=== PATIENT | male | born 1960 | race Caucasian/White ===

== ENCOUNTER 2018-05-19 17:58 | Emergency (ER) | payer OTHER, MEDICAID, SELFPAY ==
[2018-05-19 18:00] VITALS: BP 124/82; PULSE 82; RESP 14; TEMP 36.3; O2SAT 99
--- NOTE | 2018-05-19 18:27 | ED_ITS ---
HPI - Neuro Symptoms/Deficit General Chief Complaint: Neuro Symptoms/Deficit Stated Complaint: THINKS HE IS HAVING A STROKE Time Seen by Provider: 05/19/18 18:27 Source: patient and family Mode of arrival: ambulatory Limitations: no limitations History of Present Illness HPI Narrative: Patient is a 58-year-old male here for evaluation of left-sided headache and weakness in his left leg. 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 He has since had this aneurysm clipped. He states that he does have residual left-sided weakness and tingling specially in his left lower extremity. He states that the symptoms have been improving. He states that today he woke up this morning of that is normal state health. He states he laid down to take a nap at approximately 10 o 'clock and woke up at approximately noon with a left-sided headache. He also states that he has some tingling and weakness in his left leg which he thinks is little worse than normal for him. No upper extremity symptoms. No vision changes. He states that he normally does not get headaches. He states that the headache on the left side of his head feels very similar to what the headache felt like when he was diagnosed the aneurysm on the right side. Has not tried anything for prior to arrival here in the emergency. On Anticoagulants: Yes (81mg ASA) Related Data Home Medications Medication Instructions Recorded Confirmed acetaminophen-codeine 1 - 2 tab PO Q4HP PRN #0 06/23/17 cyclobenzaprine 10 mg PO Q8H #0 06/23/17 cyclobenzaprine mg PO Q8HP PRN #45 06/23/17 escitalopram oxalate 20 mg PO QDAY #0 06/23/17 gabapentin 100 mg PO QID #0 06/23/17 olanzapine 20 mg PO HS #0 06/23/17 oxcarbazepine [Oxtellar XR] 2 cap PO HS #0 06/23/17 oxcarbazepine [Oxtellar XR] 600 mg PO HS #42 06/23/17 topiramate 50 mg PO BID #0 06/23/17 tramadol 50 - 100 mg PO QIDP PRN #0 06/23/17 venlafaxine 150 mg PO QDAY #0 06/23/17 venlafaxine [Effexor XR] 150 mg PO Q DAY #19 06/23/17 aspirin 81 mg PO QDAY #0 08/28/17 atorvastatin [Lipitor] 40 mg PO QDAY #0 08/28/17 nicotine 21 mg TOPICAL QDAY #0 08/28/17 valproic acid 250 mg PO #0 08/28/17 benztropine 1 mg PO BID #0 10/06/17 divalproex 500 mg PO TID #0 10/06/17 divalproex [Depakote] 250 mg PO BID #0 10/06/17 haloperidol 2 mg PO BID #0 10/06/17 levetiracetam [Keppra] 1,500 mg PO BID #0 10/06/17 quetiapine [Seroquel] 250 mg PO HS #0 10/06/17 Previous Rx's Medication Instructions Recorded cyclobenzaprine 10 mg PO Q8HP PRN #20 tab 06/23/17 escitalopram oxalate [Lexapro] 20 mg PO QDAY #15 tab 06/23/17 gabapentin 100 mg PO QID #270 cap 06/23/17 oxcarbazepine [Oxtellar XR] 600 mg PO HS #42 06/23/17 topiramate [Topamax] 50 mg PO BID #32 06/23/17 tramadol 0 tab PO Q6HP PRN #20 tab 06/23/17 venlafaxine [Effexor XR] 150 mg PO QDAY #19 cap 06/23/17 Allergies Allergy/AdvReac Type Severity Reaction Status Date / Time cephalexin [From KEFLEX] Allergy Unknown Verified 05/19/18 18:03 erythromycin base Allergy Unknown Verified 05/19/18 18:03 [ERYTHROMYCIN BASE] ketorolac [From TORADOL] Allergy Unknown Verified 05/19/18 18:03 Review of Systems Constitutional Denies fever(s), Reports headache(s) and Reports weakness (Left lower extremity) Eyes Denies change in vision, Denies diplopia, Denies floaters and Denies loss of vision ENT Ears, Nose, Mouth, and Throat: Denies vertigo, Denies dizziness, Reports headache(s) and Denies disequilibrium Cardiovascular Denies chest pain and Denies dyspnea Respiratory Denies dyspnea Gastrointestinal Gastrointestinal: Denies abdominal pain, Denies nausea and Denies vomiting Musculoskeletal Denies myalgias, Denies arthralgias, Denies numbness and Reports tingling (Left lower extremity) Integumentary/Breasts Denies lesions and Denies rash Neurologic Denies vertigo, Denies dizziness, Reports headache(s), Denies loss of vision, Denies numbness, Reports tingling (Left lower extremity), Denies disequilibrium and Reports weakness (Left lower extremity) Hematologic/Lymphatic Denies easy bleeding and Denies easy bruising [facility] Medical History Cerebral aneurysm (Acute) Hemorrhagic stroke (Acute) Seizure (Acute) Surgical History H/O cerebral aneurysm repair (Acute) History of permanent cardiac pacemaker placement (Acute) Social History Smoking Status: Current every day smoker Exam Initial Vital Signs Initial Vital Signs: Vital Signs Temperature 97.4 F L 05/19/18 18:00 Pulse Rate 82 05/19/18 18:00 Respiratory Rate 14 05/19/18 18:00 Blood Pressure 124/82 05/19/18 18:00 Pulse Oximetry 99 05/19/18 18:00 Const General: cooperative, comfortable, well developed, well groomed and No acute distress Orientation: alert, awake, oriented x3, oriented to person, oriented to place, oriented to time and not confused Limitations: mental status not altered [facility] Head: atraumatic Face and sinus: normal facial exam and face symmetric Eyes Pupils: PERRL EOM: EOM intact bilaterally and No nystagmus Resp Effort & Inspection: normal respiratory effort Auscultation: clear to auscultation bilaterally Cardio Rate: regular rate Rhythm: regular rhythm Heart Sounds: no murmurs GI Inspection: normal to inspection, abdominal wall ecchymosis and non-distended Palpation: soft and No firm Back/Spine/Pelvis Back: No CVA tenderness Skin Rashes: no rashes Wounds: no wounds Neuro General: alert, awake, oriented x3, not confused and not obtunded Cranial Nerves: CN's II-XI intact bilaterally, PERRL, EOM intact bilaterally, facial strength normal, tongue midline, able to rotate head bilaterally, able to elevate shoulders bilaterally and No nystagmus Cognition: normal cognition Speech: speech normal Motor: strength 5/5 throughout, no pronator drift and no movement abnormalities noted Sensory Exam: lower extremity (Decreased sensation to light touch left lower extremity compared to right) Coordination: [id number] test normal and dgty-[id number] test normal (Some difficulty with heel to farooq with the left lower extremity) Scores GCS [place] coma scale eye opening: Spontaneous [place] coma scale verbal response: Orientated [place] coma scale motor response: Obey commands [place] coma scale total score: 15 NIH Stroke Scale Level of Conciousness: Alert, keenly responsive Ask month/age: Answers both questions correctly. Open/close eyes, close hand: Performs both tasks correctly Best gaze horizontal: Normal Visual campos: No visual loss Facial palsy: Normal symetrical movement Left arm drift: No drift for full 10 sec Right arm drift: No drift for full 10 sec Left leg drift: Drifts down, not to bed Right leg drift: No drift for full 10 sec Limb ataxia: Present in one limb Sensory on face/arms/legs: Mild to moderate sensory loss, can tell touch Best language: No aphasia, normal Dysarthria: Normal Extinction or inattention: No abnormality Total NIH Stroke scale score: 3 Course Orders Ordered: Discontinued Medications Diphenhydramine HCl (Benadryl) 25 mg IV NOW ONE Stop: 05/19/18 20:50 Last Admin: 05/19/18 21:02 Dose: 25 mg Sodium Chloride (Normal Saline 0.9%) 1,000 mls @ 1,000 mls/hr IV BOLUS ONE Stop: 05/19/18 19:26 Last Infusion: 05/19/18 19:45 Dose: 0 mls/hr Admin: 05/19/18 18:52 Dose: 1,000 mls/hr Metoclopramide HCl (Reglan) 10 mg IV NOW ONE Stop: 05/19/18 20:50 Last Admin: 05/19/18 21:02 Dose: 10 mg Morphine Sulfate (Morphine Sulfate) 4 mg IV NOW ONE Stop: 05/19/18 21:53 Last Admin: 05/19/18 21:59 Dose: 4 mg Vital Signs - 8 hr 05/19/18 21:00 05/19/18 22:22 Pulse Rate 51 L 51 L Respiratory Rate 14 20 Blood Pressure [Right Arm] 125/70 117/82 Pulse Oximetry 100 100 MDM - Neuro Symptoms/Deficit Medical Records Attestation: I reviewed the patient's medical records. Lab Data Attestation: I reviewed the patient's lab results. Result diagrams: 05/19/18 18:36 05/19/18 18:36 Lab Results 05/19/18 05/19/18 05/19/18 Range/Units 18:36 18:36 18:36 WBC 5.2 (4.5-11.0) X10^3/uL RBC 4.31 L (4.5-5.9) X10^6/uL Hgb 14.6 (13.5-17.5) g/dL Hct 42.5 (41-53) % MCV 98.7 (80-100) fL MCH 33.9 (26-34) PG MCHC 34.3 (30-36) % RDW 12.9 (11.6-14.8) % Plt Count 169 (150-400) X10^3/uL Neut % (Auto) 49.8 L (50-75) % Lymph % (Auto) 39.9 (25-40) % Mcdonough % (Auto) 9.1 (3-14) % Eos % (Auto) 0.5 L (2-4) % Baso % (Auto) 0.7 (0-2) % Neut # (Auto) 2600 L (7529-2997) /uL PT 11.2 (10.1-12.7) SECONDS INR 1.0 (0.9-1.3) APTT 31 (26.4-36.2) SECONDS Sodium 143 (137-145) mmol/L Potassium 4.2 (3.4-5.1) mmol/L Chloride 105 (98-107) mmol/L Carbon Dioxide 27 (22-32) mmol/L BUN 12 (9-20) mg/dL Creatinine 1.00 (0.66-1.25) mg/dL Estimated GFR > 60.0 (>60) mL/min BUN/Creatinine Ratio 12.0 (6-22) Glucose 99 (70-100) mg/dL Calcium 9.2 (8.4-10.2) mg/dL Total Bilirubin 0.4 (0.2-1.3) mg/dL AST 22 (17-59) IU/L ALT 29 (21-72) IU/L Alkaline Phosphatase 42 (38-126) U/L Total Protein 6.9 (6.3-8.2) g/dL Albumin 4.2 (3.5-5.0) g/dL Globulin 2.7 (1.7-4.1) g/dL Albumin/Globulin Ratio 1.6 (1.0-2.8) Imaging Data CT scan - head: Radiologist's impression: [address] [address] [address] Scan Report Signed Patient: Jeyson Flynn BMR#: [id number] : 2Acct:[id number] Age/Sex: 58 / MDate of Service: 05/19/18 Loc: ED Accession Number: [id number] Procedure: CT head/brain wo con Ordering Provider: Jayjay Maldonado D.O. PROCEDURE: CT HEAD/BRAIN WO CON INDICATIONS: History of hemorrhagic CVA with aneurysm with headache TECHNIQUE: Noncontrast 4.5 mm thick angled axial sections acquired from the foramen magnum to the vertex, with coronal and sagittal reformats. For radiation dose reduction, the following was used: automated exposure control, adjustment of mA and/or kV according to patient size. COMPARISON: None. FINDINGS: Image quality: Excellent. CSF spaces: Basal cisterns are patent. No extra-axial fluid collections. The ventricles are symmetric in size and shape. Brain: No intracranial bleeds or masses. There is cerebral volume loss for age , with resultant ventricular and sulcal prominence. There are periventricular and deep white matter chronic small vessel ischemic changes. Chronic right temporal, right frontal and right parietal infarcts are noted. Old, bilateral cerebellar hemisphere lacunar infarcts are noted. Postsurgical changes compatible with cerebral aneurysm clipping and possibly endovascular coiling noted. There is intracranial internal carotid artery atherosclerosis. Skull and face: Postsurgical changes compatible with right frontal-temporal craniotomy for aneurysm clipping noted. Bifrontal calvarial niharika holes are noted. The visualized facial bones appear intact, without suspicious lesions. Sinuses: Visualized sinuses and mastoids are clear. IMPRESSION: 1. No acute intracranial disease process. 2. Postsurgical changes compatible with prior cerebral aneurysm clipping and and possibly endovascular coiling. 3. Old right temporal, right frontal and right parietal infarcts. Old bilateral cerebellar hemisphere lacunar infarcts. Dictated by: Kelsey Peter MD, PhD on 05/19/2018 at 21:22 Approved by: Kelsey Peter MD, PhD on 05/19/2018 at 21:26 CTA Head and neck: Radiologist's impression: [address] [address] [address] Scan Report Signed Patient: Jeyson Flynn BMR#: [id number] : 2Acct:[id number] Age/Sex: 58 / MDate of Service: 05/19/18 Loc: ED Accession Number: [id number] Procedure: CT angio head and neck Ordering Provider: Jayjay Maldonado D.O. PROCEDURE: CT ANGIO HEAD AND NECK INDICATIONS: History CVA and aneurysm with headache TECHNIQUE: Pre-contrast 4.5 mm thick sections acquired from the foramen magnum to the vertex. After the administration of intravenous contrast, 1 mm thick sections acquired from the aortic arch through the [place]. Post-contrast 4.5 mm thick sections then re- acquired from the foramen magnum to the vertex. 3-dimensional maximum-intensity- projection (MIP) and/or volume rendering reformats were acquired of the central intracranial vasculature and neck separately. COMPARISON: None. FINDINGS: Image quality: Excellent. BRAIN: CSF spaces: Ventricles are normal in size and shape. Basal cisterns are patent. No extra-axial fluid collections. 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 No midline shift. No intracranial bleeds or masses. Old right frontal, right parietal, right temporal infarcts are noted. Old bilateral cerebellar hemisphere lacunar infarcts are noted. Skull and face: Postsurgical changes compatible with right frontal-temporal craniotomy for aneurysm clipping noted. The facial bones appear intact, without suspicious lesions. Orbits appear normal. Sinuses: Sinuses and mastoids are clear. HEAD CT ANGIOGRAPHY: Anterior circulation: Intracranial internal carotid arteries are normal in size and flow. The flow within the paired anterior cerebral arteries is normal and symmetric. The flow within the middle cerebral arteries is normal and symmetric. The anterior communicating artery is seen. No aneurysms are seen. Posterior circulation: Visualized portions of the vertebral arteries demonstrate normal caliber, and join to form a normal appearing basilar artery. Flow within the posterior cerebral arteries is normal and symmetric. No aneurysms are seen. Dural sinuses demonstrate normal postcontrast enhancement. NECK CT ANGIOGRAPHY: Carotid system: The great vessels demonstrate a conventional anatomy as they arise from the aortic arch. The origins of the common carotid arteries appear patent. The common carotid arteries demonstrate normal caliber and courses. Atherosclerotic calcifications noted in the origins of the internal carotid arteries bilaterally which do not cause measurable stenosis. Posterior circulation: The origins of the vertebral arteries both appear widely patent. The more superior extracranial portions of both vertebral arteries also demonstrate normal courses and calibers. They join to form a normal appearing basilar artery. Soft tissues: Visualized neck soft tissues demonstrate no suspicious abnormalities. Bones: No suspicious bony lesions. Visualized cervical spine appears normally aligned. IMPRESSION: 1. No acute intracranial disease process. 2. Status post clipping/endovascular coiling of cerebral aneurysm. 3. No large vessel occlusion, hemodynamically significant vascular stenosis or vascular dissection. 4. Less than 50% stenosis of the origins of the internal carotid arteries bilaterally. Any quantitative measurements of stenosis were performed using NASCET criteria. Dictated by: Kelsey Peter MD, PhD on 05/19/2018 at 21:35 Approved by: Kelsey Peter MD, PhD on 05/19/2018 at 21:41 [facility] Narrative Medical decision making narrative: Noncontrast head CT unremarkable. CT angiogram of the head neck shows the right-sided aneurysmal clipping however no signs of new bleed or aneurysm. Patient with an NIH scale of 3. Last known normal was at 10 o'clock patient evaluated greater than 6 hr after the onset of the symptoms. Difficult for me and also the patient to distinguish whether not this symptoms in his left lower extremity are baseline for him more little bit worse. He does seem to think that the weakness and the tingling is a little worse than his baseline. Patient does not have a history of headaches. He states this headache feels what he felt like when he had the aneurysm on the right. He was given Reglan and Benadryl which brought his headache down from a 9/10 to a 7/10. I then gave him morphine which brought his headache down to a 3 /10. I discussed the case with the patient's neurologist. Patient is unable to obtain an MRI secondary to the his aneurysmal clips and also his pacemaker. Patient's neurologist seem to think that if the patient's headache was improving that given the normal head CT and a CTA that a lumbar puncture would not necessarily be warranted. I did discuss this with the patient. We did discuss the indications for lumbar puncture however given the fact that his headache has greatly improved he was asking to go home. Some of the trembling in his left lower extremity had improved after his headache pain and improved. I did inform the patient that he was at risk for intracranial hemorrhage. Patient expressed understanding of this. He was given return precautions. He was instructed he needed to contact his primary care doctor tomorrow for a follow-up. Both the patient and his son who are bedside expressed understanding and agreement with plan. Discharge Plan Departure Patient Disposition: Home Clinical Impression: Headache Discharge Date/Time: 05/19/18 22:31 Interventions: ED Discharge Assessment Last Done: 05/19/18 22:30 Instructions: DI for Headache Activity Restrictions/Additional Instructions: Call your neurologist tomorrow for a follow-up. Return to the emergency department for any new symptoms, worsening symptoms worsening of the headache, or any other concerning symptoms. Prescriptions: No Action olanzapine 20 MG tablet 20 mg PO HS Qty: 0 RF: 0 cyclobenzaprine 10 MG tablet 10 mg PO Q8H Qty: 0 RF: 0 oxcarbazepine [Oxtellar XR] 600 MG tablet extended release 24 hr 2 cap PO HS Qty: 0 RF: 0 gabapentin 100 MG capsule 100 mg PO QID Qty: 0 RF: 0 escitalopram oxalate 20 MG tablet 20 mg PO QDAY Qty: 0 RF: 0 topiramate 50 MG tablet 50 mg PO BID Qty: 0 RF: 0 tramadol 50 MG tablet 50 - 100 mg PO QIDP PRNQty: 0 RF: 0 acetaminophen-codeine 60 MG/300 MG tablet 1 - 2 tab PO Q4HP PRNQty: 0 RF: 0 venlafaxine 150 MG capsule,extended release 24hr 150 mg PO QDAY Qty: 0 RF: 0 venlafaxine [Effexor XR] 150 MG capsule,extended release 24hr 150 mg PO Q DAY Qty: 19 RF: 0 cyclobenzaprine 10 MG tablet PO Q8HP PRNQty: 45 RF: 0 oxcarbazepine [Oxtellar XR] 600 MG tablet extended release 24 hr 600 mg PO HS Qty: 42 RF: 0 cyclobenzaprine 10 MG tablet 10 mg PO Q8HP PRNQty: 20 RF: 0 venlafaxine [Effexor XR] 150 MG capsule,extended release 24hr 150 mg PO QDAY Qty: 19 RF: 0 tramadol 50 MG tablet PO Q6HP PRNQty: 20 RF: 0 gabapentin 100 MG capsule 100 mg PO QID Qty: 270 RF: 0 escitalopram oxalate [Lexapro] 20 MG tablet 20 mg PO QDAY Qty: 15 RF: 0 topiramate [Topamax] 50 MG tablet 50 mg PO BID Qty: 32 RF: 0 oxcarbazepine [Oxtellar XR] 600 MG tablet extended release 24 hr 600 mg PO HS Qty: 42 RF: 0 atorvastatin [Lipitor] 40 MG tablet 40 mg PO QDAY Qty: 0 RF: 0 aspirin 81 MG tablet,chewable 81 mg PO QDAY Qty: 0 RF: 0 nicotine 14 MG patch 24 hour 21 mg Topical QDAY Qty: 0 RF: 0 valproic acid 250 MG capsule 250 mg PO Qty: 0 RF: 0 divalproex 500 MG tablet,delayed release (DR/EC) 500 mg PO TID Qty: 0 RF: 0 benztropine 1 MG tablet 1 mg PO BID Qty: 0 RF: 0 quetiapine [Seroquel] 300 MG tablet 250 mg PO HS Qty: 0 RF: 0 divalproex [Depakote] 250 MG tablet,delayed release (DR/EC) 250 mg PO BID Qty: 0 RF: 0 haloperidol 2 MG tablet 2 mg PO BID Qty: 0 RF: 0 levetiracetam [Keppra] 1,000 MG tablet 1,500 mg PO BID Qty: 0 RF: 0
[2018-05-19 18:46] LABS: Add Manual Diff / Slide Review NO; Basophils Percent Auto 0.7 % (0-2); Eosinophils Percent Auto 0.5 % (2-4); Hematocrit 42.5 % (41-53); Hemoglobin 14.6 g/dL (13.5-17.5); Lymphocytes Percent Auto 39.9 % (25-40); Mean Corpuscular HGB Conc 34.3 % (30-36); Mean Corpuscular Hemoglobin 33.9 PG (26-34); Mean Corpuscular Volume 98.7 fL (80-100); Monocytes Percent Auto 9.1 % (3-14); Neutrophils Absolute Auto 2600 /uL (3000-5900); Neutrophils Percent Auto 49.8 % (50-75); Platelet Count 169 X10^3/uL (150-400); Red Blood Cell Count 4.31 X10^6/uL (4.5-5.9); Red Cell Distribution Width 12.9 % (11.6-14.8); White Blood Cell Count 5.2 X10^3/uL (4.5-11.0)
[2018-05-19] MEDS: SODIUM CHLORIDE 0.9% 1,000 ML 1000 ML IV (18:52)
[2018-05-19 18:53] LABS: Prothrombin Time 11.2 SECONDS (10.1-12.7)
[2018-05-19 18:56] LABS: PTT Partial Thromboplastin Tim 31 SECONDS (26.4-36.2)
[2018-05-19 18:58] LABS: Alanine Aminotransferase 29 IU/L (21-72); Albumin 4.2 g/dL (3.5-5.0); Albumin Globulin Ratio 1.6 (1.0-2.8); Alkaline Phosphatase 42 U/L (38-126); Aspartate Aminotransferase 22 IU/L (17-59); Bilirubin Total 0.4 mg/dL (0.2-1.3); Blood Urea Nitrogen 12 mg/dL (9-20); Calcium 9.2 mg/dL (8.4-10.2); Carbon Dioxide 27 mmol/L (22-32); Chloride 105 mmol/L (98-107); Estimated Glomerular Filt Rate > 60.0 mL/min (>60); Globulin 2.7 g/dL (1.7-4.1); Glucose 99 mg/dL (70-100); HEMOLYSIS < 15 (0-50); Potassium 4.2 mmol/L (3.4-5.1); Sodium 143 mmol/L (137-145); Total Protein 6.9 g/dL (6.3-8.2)
--- NOTE | 2018-05-19 19:30 | PC.NURSE ---
pt c/o headache that travels from the back of his neck to the top of head. 03/26 pain, provider notified no new orders at this time.
[2018-05-19 19:45] VITALS: BP 128/75; PULSE 57; RESP 14; O2SAT 100
[2018-05-19 21:00] VITALS: BP 125/70; PULSE 51; RESP 14; O2SAT 100
[2018-05-19] MEDS: METOCLOPRAMIDE 10 MG/2 ML INJ IV (21:02)
[2018-05-19] MEDS: diphenhydrAMINE 50 MG/ML VIAL 25 MG IV (21:02)
[2018-05-19] MEDS: MORPHINE 5 MG/ML INJ 4 MG IV (21:59)
[2018-05-19 22:22] VITALS: BP 117/82; PULSE 51; RESP 20; O2SAT 100
== END 2018-05-19 22:31 | disposition home or self-care (01) ==
PROVIDERS: Emergency Provider Emergency Medicine; Family Provider Family Medicine; PCP Family Medicine
DX: R51 Headache (principal)
CPT/HCPCS: 36591; 70450; 70496; 70498; 80053; 85025; 85610; 85730; 96361; 96374; 96375; 99283; 99284; 99291; J1200; J2270; J2765; Q9967

== ENCOUNTER 2018-05-20 11:03 | Emergency (ER) | payer OTHER, MEDICAID, SELFPAY ==
[2018-05-20 11:10] VITALS: BP 91/65; PULSE 74; RESP 16; TEMP 36.2; O2SAT 100
--- NOTE | 2018-05-20 11:26 | DI.CT.S_ITS ---
PROCEDURE: CT VENOGRAM HEAD INDICATIONS: CONTRERAS, sent by Neurologist for VENOGRAM TECHNIQUE: Precontrast 4.5 mm thick angled axial sections acquired from the foramen magnum to the vertex. After the administration of intravenous contrast, 1 mm thick sections acquired from the skull base to the vertex after an appropriate venous phase delay. Postcontrast 4.5 mm thick sections then re-acquired from the foramen magnum to the vertex. Ciuiplg-fbyqefqun-pujotsgvwd (MIP) reformats were acquired of the venous structures. For radiation dose reduction, the following was used: automated exposure control, adjustment of mA and/or kV according to patient size. COMPARISON: [facility], CT, CT ANGIO HEAD AND NECK, 05/19/2018, 19:19. FINDINGS: Image quality: Excellent. Venous structures: Sagittal, straight, transverse, and sigmoid sinuses appear patent. 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 No definite superficial cortical venous thrombosis identified. CSF spaces: Ventricles are normal in size and shape. Basal cisterns are patent. No extra-axial fluid collections. Brain: No midline shift. No intracranial bleeds or masses. Chronic right frontal, right parietal and right temporal infarcts are stable. Chronic bilateral cerebellar hemisphere lacunar infarcts are stable. [place]-white matter interface appears intact. Skull and face: Postsurgical changes compatible with prior right frontal-temporal craniotomy for aneurysm clipping noted. facial bones appear intact, without suspicious lesions. Sinuses: Visualized sinuses and mastoids are clear. IMPRESSION: 1. No evidence of dural venous thrombosis. 2. No definite superficial cortical venous thrombosis. Dictated by: Kelsey Peter MD, PhD on 05/20/2018 at 12:31 Approved by: Kelsey Peter MD, PhD on 05/20/2018 at 12:36
--- NOTE | 2018-05-20 11:29 | ED.HA ---
HPI - Headache General Chief Complaint: Headache Stated Complaint: REAL BAD HEADACHE, SHAKING Time Seen by Provider: 05/20/18 11:18 Source: patient and family Mode of arrival: ambulatory Limitations: no limitations History of Present Illness HPI Narrative: 58-year-old male with complicated history returns to the emergency department with his son. He has a history of stroke and ruptured cerebral aneurysm and presents for re-evaluation of headache. He was seen and evaluated last night after progressively worsening headache over the course of the day and the possibility of left lower extremity weakness. 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 Patient had a noncontrasted head CT followed by CT angiogram of the head neck last night and a significant response to medications he was given. He was discharged home and follow up with his doctor, Dr. mcguire a neurologist at [facility], whom upon hearing the patient's headache returned sent him back to our department for a CT venogram of the head. Patient admits that he has a return of his headache but that his left lower extremity weakness has resolved. He denies any focal neurologic findings. He denies any recent injury. He denies any fever, chills or neck pain. He is acting at baseline per his son. MD Complaint: headache Onset (ago): hour(s) Onset description: gradual Location: occipital Severity: moderate Quality: aching and throbbing Exacerbating factors: none Context: occurred at rest Associated symptoms: none Related Data Home Medications Medication Instructions Recorded Confirmed topiramate 50 mg PO QAM #0 06/23/17 05/20/18 venlafaxine 150 mg PO QDAY #0 06/23/17 05/20/18 aspirin 81 mg PO QDAY #0 08/28/17 05/20/18 benztropine 1 mg PO BID #0 10/06/17 05/20/18 divalproex 500 mg PO BID #0 10/06/17 05/20/18 levetiracetam [Keppra] 1,500 mg PO BID #0 10/06/17 05/20/18 docusate sodium 100 mg PO BID PRN 05/20/18 05/20/18 quetiapine 50 mg PO BID 05/20/18 05/20/18 topiramate 100 mg PO QPM 05/20/18 05/20/18 Previous Rx's Medication Instructions Recorded tramadol [Ultram] 50 mg PO Q6H PRN #10 tab 05/20/18 Allergies Allergy/AdvReac Type Severity Reaction Status Date / Time cephalexin [From KEFLEX] Allergy Unknown Verified 05/19/18 18:03 erythromycin base Allergy Unknown Verified 05/19/18 18:03 [ERYTHROMYCIN BASE] ketorolac [From TORADOL] Allergy Unknown Verified 05/19/18 18:03 Review of Systems Review of Systems All systems reviewed & are unremarkable except as noted in HPI and below Constitutional Denies chills, Denies fever(s), Reports headache(s), Denies lethargy and Denies weakness Eyes Denies change in vision, Denies eye discharge, Denies irritation and Denies loss of vision ENT Ears, Nose, Mouth, and Throat: Denies change in voice, Reports headache(s), Denies neck pain and Denies sore throat Cardiovascular Denies chest pain, Denies irregular heart rhythm, Denies lightheadedness, Denies palpitations, Denies dyspnea, Denies dyspnea on exertion and Denies orthopnea Respiratory Denies cough, Denies dyspnea, Denies dyspnea on exertion and Denies wheezing Gastrointestinal Gastrointestinal: Denies abdominal pain, Denies change in bowel habits, Denies diarrhea, Denies nausea and Denies vomiting Genitourinary Denies hematuria, Denies flank pain, Denies urinary incontinence and Denies urinary urgency Musculoskeletal Denies neck pain Integumentary/Breasts Denies pruritus, Denies erythema, Denies rash and Denies wounds Neurologic Denies confusion, Reports headache(s), Denies loss of vision and Denies weakness Psychiatric Denies anxiety, Denies confusion, Denies depression, Denies homicidal ideation and Denies suicidal ideation Endocrine Denies palpitations Hematologic/Lymphatic Denies easy bruising Allergic/Immunologic Denies wheezing PFSH Medical History Cerebral aneurysm (Acute) Hemorrhagic stroke (Acute) Seizure (Acute) Surgical History H/O cerebral aneurysm repair (Acute) History of permanent cardiac pacemaker placement (Acute) Social History Smoking Status: Current every day smoker Exam Narrative Exam Narrative: GENERAL:58M chronically ill in mild distress, complaining of headache. Sitting in a well-lit room. Alert and oriented x3 HEAD: Atraumatic. Normocephalic. No temporal or scalp tenderness. EYES: Pupils equal round and reactive. Extraocular motions intact. No scleral icterus. No injection or drainage. ENT: Nose without bleeding, purulent drainage or septal hematoma. Throat without erythema, tonsillar hypertrophy or exudate. Uvula midline. Airway patent. NECK: Trachea midline. No JVD or lymphadenopathy. Supple, nontender, no meningeal signs. CARDIOVASCULAR: Regular rate and rhythm without murmurs, gallops, or rubs. RESPIRATORY: Clear to auscultation. Breath sounds equal bilaterally. No wheezes, rales, or rhonchi. GASTROINTESTINAL: Abdomen soft, non-tender, nondistended. No hepato-splenomegaly, or palpable masses. No guarding. EXTREMITIES: No clubbing, cyanosis, or edema. No joint tenderness, effusion, or edema noted. BACK: Nontender without deformity or crepitance. No flank tenderness. NEURO: AOx3. SKIN: No rash or erythema. NIH Stroke Scale 1a. LOC: Patient is alert and keenly responsive (0) 1b. LOC Questions: Patient answers both LOC questions accurately (0) 1c. LOC Commands: Patient performs both tasks correctly (0) 2. Best Gaze: Normal (0) 3. Visual: No visual loss (0) 4. Facial palsy: Normal symmetrical movements (0) 5. Motor arm: No drift (0) 6. Motor leg: No drift (0) 7. Limb ataxia: Absent (0) 8. Sensory: Normal (0) 9. Best language: No aphasia; normal (0) 10. Dysarthria: Normal (0) 11. Extinction and inattention: No abnormality (0) NIHSS: 0 Initial Vital Signs Initial Vital Signs: Vital Signs Temperature 97.1 F L 05/20/18 11:10 Pulse Rate 74 05/20/18 11:10 Respiratory Rate 16 05/20/18 11:10 Blood Pressure 91/65 05/20/18 11:10 Pulse Oximetry 100 05/20/18 11:10 Const General: cooperative and well developed Nutritional Appearance: well nourished Orientation: alert, awake, oriented x3 and not confused [facility] Head: normocephalic and atraumatic Ears: external ears normal and TM's normal bilaterally Nose: external nose normal and No nasal discharge Face and sinus: sinuses nontender, face symmetric, no sinus tenderness and No dry mucous membranes Mouth: oral mucosae normal and moist mucous membranes Teeth and gingiva: dentition normal Throat: tonsils normal and uvula midline Eyes General: appearance normal, both eyes and all related structures Eyelids: eyelids normal Conjunctivae: conjunctivae normal Sclera: sclerae normal Pupils: PERRL EOM: EOM intact bilaterally Neck Neck: normal visual inspection, trachea midline, No lymphadenopathy, No midline deformity and No JVD Lymphatic: No lymphedema Chest Chest: normal inspection of the chest Resp Effort & Inspection: normal respiratory effort, able to speak in complete sentences, no respiratory distress and no use of accessory muscles Auscultation: clear to auscultation bilaterally, no rales, no rhonchi and no wheezes Cardio Rate: regular rate Rhythm: regular rhythm Heart Sounds: no click, no gallops, no murmurs and no rubs Pulses: normal peripheral pulses GI Inspection: non-distended Palpation: soft, no hepatosplenomegaly, No guarding, No pulsatile mass and No tender Auscultation: normal bowel sounds Back/Spine/Pelvis Back: No CVA tenderness Cervical Spine: cervical ROM normal and No pain with cervical ROM Thoracic/Lumbar Spine: thoracic and lumbar spine normal to inspection Skin General: no rashes or lesions noted, No jaundice and No petechiae Neuro General: alert, oriented x3, gait normal and no focal motor deficits Speech: speech normal Extrem General: full ROM, no clubbing, cyanosis or edema, no pedal edema and no calf tenderness Psych Appearance: well kempt Mental Status: mental status grossly normal Attitude: cooperative Thought Content: normal and suicidality Judgment: judgment good Course Orders Ordered: ED Orders 05/20/18 11:52 Complete Blood Count AUTO DIFF Stat 05/20/18 12:15 Basic Metabolic Panel Stat Discontinued Medications Diphenhydramine HCl (Benadryl) 25 mg IV NOW ONE Stop: 05/20/18 12:55 Last Admin: 05/20/18 14:07 Dose: Not Given Metoclopramide HCl (Reglan) 10 mg IV NOW ONE Stop: 05/20/18 12:55 Last Admin: 05/20/18 14:07 Dose: Not Given Morphine Sulfate (Morphine) 4 mg IV NOW ONE Stop: 05/20/18 13:51 Last Admin: 05/20/18 14:05 Dose: 4 mg Reevaluation(s) Reevaluation #1: Patient has tremendous improvement in symptoms after above-stated medications. Consultations Consultation #1: I spoke with Dr. mcguire in lay all of the findings including today's CT venogram. We sure the opinion that the patient has had a very thorough evaluation between these 2 visits and all diagnoses of high clinical consequence have been considered. He recommends increasing Topamax morning dose from 50 to 100 and discharged with follow up as previously planned Vital Signs - 8 hr 05/20/18 12:56 05/20/18 14:07 05/20/18 15:03 Pulse Rate 84 61 Respiratory Rate 17 18 16 Blood Pressure [Left Arm] 115/81 106/67 124/92 H Pulse Oximetry 98 99 97 MDM - Headache Differential Diagnosis Differential diagnosis: Likely migraine, tension headache, subarachnoid hemorrhage, headache, meningitis, sinusitis and postconcussion syndrome Medical Records Attestation: I reviewed the patient's medical records. Lab Data Attestation: I reviewed the patient's lab results. Result diagrams: 05/20/18 11:52 05/20/18 12:15 Lab Results 05/20/18 05/20/18 Range/Units 11:52 12:15 WBC 5.8 (4.5-11.0) X10^3/uL RBC 4.43 L (4.5-5.9) X10^6/uL Hgb 15.1 (13.5-17.5) g/dL Hct 44.1 (41-53) % MCV 99.4 (80-100) fL MCH 34.1 H (26-34) PG MCHC 34.3 (30-36) % RDW 12.9 (11.6-14.8) % Plt Count 155 (150-400) X10^3/uL Neut % (Auto) 51.8 (50-75) % Lymph % (Auto) 37.5 (25-40) % [place] % (Auto) 9.6 (3-14) % Eos % (Auto) 0.6 L (2-4) % Baso % (Auto) 0.5 (0-2) % Neut # (Auto) 3000 (7994-7633) /uL Sodium 143 (137-145) mmol/L Potassium 4.4 (3.4-5.1) mmol/L Chloride 109 H (98-107) mmol/L Carbon Dioxide 17 L (22-32) mmol/L BUN 8 L (9-20) mg/dL Creatinine 1.00 (0.66-1.25) mg/dL Estimated GFR > 60.0 (>60) mL/min BUN/Creatinine Ratio 8.0 (6-22) Glucose 88 (70-100) mg/dL Calcium 9.2 (8.4-10.2) mg/dL Imaging Data CT scan - head: Radiologist's impression: [address] [address] [address] Scan Report Signed Patient: Jeyson Flynn BMR#: [id number] : 2Acct:[id number] Age/Sex: 58 / MDate of Service: 05/20/18 Loc: ED Accession Number: [id number] Procedure: CT angio head Ordering Provider: Shan Valenzuela D.O. PROCEDURE: CT VENOGRAM HEAD INDICATIONS: CONTRERAS, sent by Neurologist for VENOGRAM TECHNIQUE: Precontrast 4.5 mm thick angled axial sections acquired from the foramen magnum to the vertex. After the administration of intravenous contrast, 1 mm thick sections acquired from the skull base to the vertex after an appropriate venous phase delay. Postcontrast 4.5 mm thick sections then re-acquired from the foramen magnum to the vertex. Pvtuxss-lmeddsvkq-fmuvavgnta (MIP) reformats were acquired of the venous structures. For radiation dose reduction, the following was used: automated exposure control, adjustment of mA and/or kV according to patient size. COMPARISON: [facility], CT, CT ANGIO HEAD AND NECK, 05/19/2018, 19:19. FINDINGS: Image quality: Excellent. Venous structures: Sagittal, straight, transverse, and sigmoid sinuses appear patent. 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 No definite superficial cortical venous thrombosis identified. CSF spaces: Ventricles are normal in size and shape. Basal cisterns are patent. No extra-axial fluid collections. Brain: No midline shift. No intracranial bleeds or masses. Chronic right frontal, right parietal and right temporal infarcts are stable. Chronic bilateral cerebellar hemisphere lacunar infarcts are stable. Callejas-white matter interface appears intact. Skull and face: Postsurgical changes compatible with prior right frontal-temporal craniotomy for aneurysm clipping noted. facial bones appear intact, without suspicious lesions. Sinuses: Visualized sinuses and mastoids are clear. IMPRESSION: 1. No evidence of dural venous thrombosis. 2. No definite superficial cortical venous thrombosis. Dictated by: Kelsey Peter MD, PhD on 05/20/2018 at 12:31 Approved by: Kelsey Peter MD, PhD on 05/20/2018 at 12:36 [facility] Narrative Medical decision making narrative: Multiple diagnoses considered in the evaluation of this headache including intracranial hemorrhage which is thought to be less likely given the lack of any findings images.Dural venous thrombosis considered as a diagnosis without less likely given negative venogram from today. Meningitis and encephalitis considered as possible diagnoses but lack of fever, mental status change, meningeal signs make this diagnosis much less likely. Migraine, migraine equivalent, or atypical headache or considered most likely given history, physical, response to therapy, imaging results and consultation with Neurology Discharge Plan Departure Patient Disposition: Home Clinical Impression: Headache Discharge Date/Time: 05/20/18 15:13 Interventions: ED Discharge Assessment Last Done: 05/20/18 15:13 Instructions: DI for Headache Activity Restrictions/Additional Instructions: *You have been diagnosed with [ acute headache ] *What to do: *Dr. Mcguire asked that you please increase your Topamax from 50 mg in the morning to 100 mg in the morning, and continue taking 100 mg at night *Follow up with your primary care provider in 2-3 days, call for an appointment. Let them know you were seen in the Emergency Department and that we ask that you be seen in follow up *Return to ER if you should have any new, worsening or concerning symptoms Prescriptions: New tramadol [Ultram] 50 mg tablet 50 mg PO Q6H PRN (Reason: pain) Qty: 10 RF: 0 No Action topiramate 50 MG tablet 50 mg PO QAM Qty: 0 RF: 0 venlafaxine 150 MG capsule,extended release 24hr 150 mg PO QDAY Qty: 0 RF: 0 aspirin 81 MG tablet,chewable 81 mg PO QDAY Qty: 0 RF: 0 divalproex 500 MG tablet,delayed release (DR/EC) 500 mg PO BID Qty: 0 RF: 0 benztropine 1 MG tablet 1 mg PO BID Qty: 0 RF: 0 levetiracetam [Keppra] 1,000 MG tablet 1,500 mg PO BID Qty: 0 RF: 0 docusate sodium 100 mg tablet 100 mg PO BID PRN (Reason: stool softener) RF: 0 topiramate 50 mg tablet 100 mg PO QPM RF: 0 quetiapine 50 mg tablet 50 mg PO BID RF: 0 Referrals: Jayjay Jain MD [Primary Care Provider] -
[2018-05-20 12:01] LABS: Add Manual Diff / Slide Review NO; Basophils Percent Auto 0.5 % (0-2); Eosinophils Percent Auto 0.6 % (2-4); Hematocrit 44.1 % (41-53); Hemoglobin 15.1 g/dL (13.5-17.5); Lymphocytes Percent Auto 37.5 % (25-40); Mean Corpuscular HGB Conc 34.3 % (30-36); Mean Corpuscular Hemoglobin 34.1 PG (26-34); Mean Corpuscular Volume 99.4 fL (80-100); Monocytes Percent Auto 9.6 % (3-14); Neutrophils Absolute Auto 3000 /uL (3000-5900); Neutrophils Percent Auto 51.8 % (50-75); Platelet Count 155 X10^3/uL (150-400); Red Blood Cell Count 4.43 X10^6/uL (4.5-5.9); Red Cell Distribution Width 12.9 % (11.6-14.8); White Blood Cell Count 5.8 X10^3/uL (4.5-11.0)
[2018-05-20 12:31] LABS: Blood Urea Nitrogen 8 mg/dL (9-20); Calcium 9.2 mg/dL (8.4-10.2); Carbon Dioxide 17 mmol/L (22-32); Chloride 109 mmol/L (98-107); Estimated Glomerular Filt Rate > 60.0 mL/min (>60); Glucose 88 mg/dL (70-100); HEMOLYSIS 160 (0-50); Potassium 4.4 mmol/L (3.4-5.1); Sodium 143 mmol/L (137-145)
[2018-05-20 12:56] VITALS: BP 115/81; PULSE 84; RESP 17; O2SAT 98
[2018-05-20] MEDS: MORPHINE 4 MG/ML INJ IV (14:05)
[2018-05-20 14:07] VITALS: BP 106/67; RESP 18; O2SAT 99
[2018-05-20 15:03] VITALS: BP 124/92; PULSE 61; RESP 16; O2SAT 97
--- NOTE | 2018-05-20 20:54 | ED_ITS ---
HPI - Headache General Chief Complaint: Headache Stated Complaint: REAL BAD HEADACHE, SHAKING Time Seen by Provider: 05/20/18 11:18 Source: patient and family Mode of arrival: ambulatory Limitations: no limitations History of Present Illness HPI Narrative: 58-year-old male with complicated history returns to the emergency department with his son. He has a history of stroke and ruptured cerebral aneurysm and presents for re-evaluation of headache. He was seen and evaluated last night after progressively worsening headache over the course of the day and the possibility of left lower extremity weakness. 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 Patient had a noncontrasted head CT followed by CT angiogram of the head neck last night and a significant response to medications he was given. He was discharged home and follow up with his doctor, Dr. mcguire a neurologist at [facility], whom upon hearing the patient's headache returned sent him back to our department for a CT venogram of the head. Patient admits that he has a return of his headache but that his left lower extremity weakness has resolved. He denies any focal neurologic findings. He denies any recent injury. He denies any fever, chills or neck pain. He is acting at baseline per his son. MD Complaint: headache Onset (ago): hour(s) Onset description: gradual Location: occipital Severity: moderate Quality: aching and throbbing Exacerbating factors: none Context: occurred at rest Associated symptoms: none Related Data Home Medications Medication Instructions Recorded Confirmed topiramate 50 mg PO QAM #0 06/23/17 05/20/18 venlafaxine 150 mg PO QDAY #0 06/23/17 05/20/18 aspirin 81 mg PO QDAY #0 08/28/17 05/20/18 benztropine 1 mg PO BID #0 10/06/17 05/20/18 divalproex 500 mg PO BID #0 10/06/17 05/20/18 levetiracetam [Keppra] 1,500 mg PO BID #0 10/06/17 05/20/18 docusate sodium 100 mg PO BID PRN 05/20/18 05/20/18 quetiapine 50 mg PO BID 05/20/18 05/20/18 topiramate 100 mg PO QPM 05/20/18 05/20/18 Previous Rx's Medication Instructions Recorded tramadol [Ultram] 50 mg PO Q6H PRN #10 tab 05/20/18 Allergies Allergy/AdvReac Type Severity Reaction Status Date / Time cephalexin [From KEFLEX] Allergy Unknown Verified 05/19/18 18:03 erythromycin base Allergy Unknown Verified 05/19/18 18:03 [ERYTHROMYCIN BASE] ketorolac [From TORADOL] Allergy Unknown Verified 05/19/18 18:03 Review of Systems Review of Systems All systems reviewed & are unremarkable except as noted in HPI and below Constitutional Denies chills, Denies fever(s), Reports headache(s), Denies lethargy and Denies weakness Eyes Denies change in vision, Denies eye discharge, Denies irritation and Denies loss of vision ENT Ears, Nose, Mouth, and Throat: Denies change in voice, Reports headache(s), Denies neck pain and Denies sore throat Cardiovascular Denies chest pain, Denies irregular heart rhythm, Denies lightheadedness, Denies palpitations, Denies dyspnea, Denies dyspnea on exertion and Denies orthopnea Respiratory Denies cough, Denies dyspnea, Denies dyspnea on exertion and Denies wheezing Gastrointestinal Gastrointestinal: Denies abdominal pain, Denies change in bowel habits, Denies diarrhea, Denies nausea and Denies vomiting Genitourinary Denies hematuria, Denies flank pain, Denies urinary incontinence and Denies urinary urgency Musculoskeletal Denies neck pain Integumentary/Breasts Denies pruritus, Denies erythema, Denies rash and Denies wounds Neurologic Denies confusion, Reports headache(s), Denies loss of vision and Denies weakness Psychiatric Denies anxiety, Denies confusion, Denies depression, Denies homicidal ideation and Denies suicidal ideation Endocrine Denies palpitations Hematologic/Lymphatic Denies easy bruising Allergic/Immunologic Denies wheezing PFSH Medical History Cerebral aneurysm (Acute) Hemorrhagic stroke (Acute) Seizure (Acute) Surgical History H/O cerebral aneurysm repair (Acute) History of permanent cardiac pacemaker placement (Acute) Social History Smoking Status: Current every day smoker Exam Narrative Exam Narrative: GENERAL:58M chronically ill in mild distress, complaining of headache. Sitting in a well-lit room. Alert and oriented x3 HEAD: Atraumatic. Normocephalic. No temporal or scalp tenderness. EYES: Pupils equal round and reactive. Extraocular motions intact. No scleral icterus. No injection or drainage. ENT: Nose without bleeding, purulent drainage or septal hematoma. Throat without erythema, tonsillar hypertrophy or exudate. Uvula midline. Airway patent. NECK: Trachea midline. No JVD or lymphadenopathy. Supple, nontender, no meningeal signs. CARDIOVASCULAR: Regular rate and rhythm without murmurs, gallops, or rubs. RESPIRATORY: Clear to auscultation. Breath sounds equal bilaterally. No wheezes , rales, or rhonchi. GASTROINTESTINAL: Abdomen soft, non-tender, nondistended. No hepato-splenomegaly , or palpable masses. No guarding. EXTREMITIES: No clubbing, cyanosis, or edema. No joint tenderness, effusion, or edema noted. BACK: Nontender without deformity or crepitance. No flank tenderness. NEURO: AOx3. SKIN: No rash or erythema. NIH Stroke Scale 1a. LOC: Patient is alert and keenly responsive (0) 1b. LOC Questions: Patient answers both LOC questions accurately (0) 1c. LOC Commands: Patient performs both tasks correctly (0) 2. Best Gaze: Normal (0) 3. Visual: No visual loss (0) 4. Facial palsy: Normal symmetrical movements (0) 5. Motor arm: No drift (0) 6. Motor leg: No drift (0) 7. Limb ataxia: Absent (0) 8. Sensory: Normal (0) 9. Best language: No aphasia; normal (0) 10. Dysarthria: Normal (0) 11. Extinction and inattention: No abnormality (0) NIHSS: 0 Initial Vital Signs Initial Vital Signs: Vital Signs Temperature 97.1 F L 05/20/18 11:10 Pulse Rate 74 05/20/18 11:10 Respiratory Rate 16 05/20/18 11:10 Blood Pressure 91/65 05/20/18 11:10 Pulse Oximetry 100 05/20/18 11:10 Const General: cooperative and well developed Nutritional Appearance: well nourished Orientation: alert, awake, oriented x3 and not confused [facility] Head: normocephalic and atraumatic Ears: external ears normal and TM's normal bilaterally Nose: external nose normal and No nasal discharge Face and sinus: sinuses nontender, face symmetric, no sinus tenderness and No dry mucous membranes Mouth: oral mucosae normal and moist mucous membranes Teeth and gingiva: dentition normal Throat: tonsils normal and uvula midline Eyes General: appearance normal, both eyes and all related structures Eyelids: eyelids normal Conjunctivae: conjunctivae normal Sclera: sclerae normal Pupils: PERRL EOM: EOM intact bilaterally Neck Neck: normal visual inspection, trachea midline, No lymphadenopathy, No midline deformity and No JVD Lymphatic: No lymphedema Chest Chest: normal inspection of the chest Resp Effort & Inspection: normal respiratory effort, able to speak in complete sentences, no respiratory distress and no use of accessory muscles Auscultation: clear to auscultation bilaterally, no rales, no rhonchi and no wheezes Cardio Rate: regular rate Rhythm: regular rhythm Heart Sounds: no click, no gallops, no murmurs and no rubs Pulses: normal peripheral pulses GI Inspection: non-distended Palpation: soft, no hepatosplenomegaly, No guarding, No pulsatile mass and No tender Auscultation: normal bowel sounds Back/Spine/Pelvis Back: No CVA tenderness Cervical Spine: cervical ROM normal and No pain with cervical ROM Thoracic/Lumbar Spine: thoracic and lumbar spine normal to inspection Skin General: no rashes or lesions noted, No jaundice and No petechiae Neuro General: alert, oriented x3, gait normal and no focal motor deficits Speech: speech normal Extrem General: full ROM, no clubbing, cyanosis or edema, no pedal edema and no calf tenderness Psych Appearance: well kempt Mental Status: mental status grossly normal Attitude: cooperative Thought Content: normal and suicidality Judgment: judgment good Course Orders Ordered: ED Orders 05/20/18 11:52 Complete Blood Count AUTO DIFF Stat 05/20/18 12:15 Basic Metabolic Panel Stat Discontinued Medications Diphenhydramine HCl (Benadryl) 25 mg IV NOW ONE Stop: 05/20/18 12:55 Last Admin: 05/20/18 14:07 Dose: Not Given Metoclopramide HCl (Reglan) 10 mg IV NOW ONE Stop: 05/20/18 12:55 Last Admin: 05/20/18 14:07 Dose: Not Given Morphine Sulfate (Morphine) 4 mg IV NOW ONE Stop: 05/20/18 13:51 Last Admin: 05/20/18 14:05 Dose: 4 mg Reevaluation(s) Reevaluation #1: Patient has tremendous improvement in symptoms after above- stated medications. Consultations Consultation #1: I spoke with Dr. mcguire in lay all of the findings including today's CT venogram. We sure the opinion that the patient has had a very thorough evaluation between these 2 visits and all diagnoses of high clinical consequence have been considered. He recommends increasing Topamax morning dose from 50 to 100 and discharged with follow up as previously planned Vital Signs - 8 hr 05/20/18 12:56 05/20/18 14:07 05/20/18 15:03 Pulse Rate 84 61 Respiratory Rate 17 18 16 Blood Pressure [Left Arm] 115/81 106/67 124/92 H Pulse Oximetry 98 99 97 MDM - Headache Differential Diagnosis Differential diagnosis: Likely migraine, tension headache, subarachnoid hemorrhage, headache, meningitis, sinusitis and postconcussion syndrome Medical Records Attestation: I reviewed the patient's medical records. Lab Data Attestation: I reviewed the patient's lab results. Result diagrams: 05/20/18 11:52 05/20/18 12:15 Lab Results 05/20/18 05/20/18 Range/Units 11:52 12:15 WBC 5.8 (4.5-11.0) X10^3/uL RBC 4.43 L (4.5-5.9) X10^6/uL Hgb 15.1 (13.5-17.5) g/dL Hct 44.1 (41-53) % MCV 99.4 (80-100) fL MCH 34.1 H (26-34) PG MCHC 34.3 (30-36) % RDW 12.9 (11.6-14.8) % Plt Count 155 (150-400) X10^3/uL Neut % (Auto) 51.8 (50-75) % Lymph % (Auto) 37.5 (25-40) % [place] % (Auto) 9.6 (3-14) % Eos % (Auto) 0.6 L (2-4) % Baso % (Auto) 0.5 (0-2) % Neut # (Auto) 3000 (6249-3203) /uL Sodium 143 (137-145) mmol/L Potassium 4.4 (3.4-5.1) mmol/L Chloride 109 H (98-107) mmol/L Carbon Dioxide 17 L (22-32) mmol/L BUN 8 L (9-20) mg/dL Creatinine 1.00 (0.66-1.25) mg/dL Estimated GFR > 60.0 (>60) mL/min BUN/Creatinine Ratio 8.0 (6-22) Glucose 88 (70-100) mg/dL Calcium 9.2 (8.4-10.2) mg/dL Imaging Data CT scan - head: Radiologist's impression: [address] [address] [address] Scan Report Signed Patient: Jeyson Flynn BMR#: [id number] : 2Acct:[id number] Age/Sex: 58 / MDate of Service: 05/20/18 Loc: ED Accession Number: [id number] Procedure: CT angio head Ordering Provider: Shan Valenzuela D.O. PROCEDURE: CT VENOGRAM HEAD INDICATIONS: CONTRERAS, sent by Neurologist for VENOGRAM TECHNIQUE: Precontrast 4.5 mm thick angled axial sections acquired from the foramen magnum to the vertex. After the administration of intravenous contrast, 1 mm thick sections acquired from the skull base to the vertex after an appropriate venous phase delay. Postcontrast 4.5 mm thick sections then re-acquired from the foramen magnum to the vertex. Ymzyxeb-apkngupoc-fngpmdshle (MIP) reformats were acquired of the venous structures. For radiation dose reduction, the following was used: automated exposure control, adjustment of mA and/or kV according to patient size. COMPARISON: [facility], CT, CT ANGIO HEAD AND NECK, 05/19/2018, 19:19. FINDINGS: Image quality: Excellent. Venous structures: Sagittal, straight, transverse, and sigmoid sinuses appear patent. 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 No definite superficial cortical venous thrombosis identified. CSF spaces: Ventricles are normal in size and shape. Basal cisterns are patent. No extra-axial fluid collections. Brain: No midline shift. No intracranial bleeds or masses. Chronic right frontal, right parietal and right temporal infarcts are stable. Chronic bilateral cerebellar hemisphere lacunar infarcts are stable. Callejas-white matter interface appears intact. Skull and face: Postsurgical changes compatible with prior right frontal- temporal craniotomy for aneurysm clipping noted. facial bones appear intact, without suspicious lesions. Sinuses: Visualized sinuses and mastoids are clear. IMPRESSION: 1. No evidence of dural venous thrombosis. 2. No definite superficial cortical venous thrombosis. Dictated by: Kelsey Peter MD, PhD on 05/20/2018 at 12:31 Approved by: Kelsey Peter MD, PhD on 05/20/2018 at 12:36 [facility] Narrative Medical decision making narrative: Multiple diagnoses considered in the evaluation of this headache including intracranial hemorrhage which is thought to be less likely given the lack of any findings images.Dural venous thrombosis considered as a diagnosis without less likely given negative venogram from today. Meningitis and encephalitis considered as possible diagnoses but lack of fever, mental status change, meningeal signs make this diagnosis much less likely. Migraine, migraine equivalent, or atypical headache or considered most likely given history, physical, response to therapy, imaging results and consultation with Neurology Discharge Plan Departure Patient Disposition: Home Clinical Impression: Headache Discharge Date/Time: 05/20/18 15:13 Interventions: ED Discharge Assessment Last Done: 05/20/18 15:13 Instructions: DI for Headache Activity Restrictions/Additional Instructions: *You have been diagnosed with [ acute headache ] *What to do: *Dr. Mcguire asked that you please increase your Topamax from 50 mg in the morning to 100 mg in the morning, and continue taking 100 mg at night *Follow up with your primary care provider in 2-3 days, call for an appointment. Let them know you were seen in the Emergency Department and that we ask that you be seen in follow up *Return to ER if you should have any new, worsening or concerning symptoms Prescriptions: New tramadol [Ultram] 50 mg tablet 50 mg PO Q6H PRN (Reason: pain) Qty: 10 RF: 0 No Action topiramate 50 MG tablet 50 mg PO QAM Qty: 0 RF: 0 venlafaxine 150 MG capsule,extended release 24hr 150 mg PO QDAY Qty: 0 RF: 0 aspirin 81 MG tablet,chewable 81 mg PO QDAY Qty: 0 RF: 0 divalproex 500 MG tablet,delayed release (DR/EC) 500 mg PO BID Qty: 0 RF: 0 benztropine 1 MG tablet 1 mg PO BID Qty: 0 RF: 0 levetiracetam [Keppra] 1,000 MG tablet 1,500 mg PO BID Qty: 0 RF: 0 docusate sodium 100 mg tablet 100 mg PO BID PRN (Reason: stool softener) RF: 0 topiramate 50 mg tablet 100 mg PO QPM RF: 0 quetiapine 50 mg tablet 50 mg PO BID RF: 0 Referrals: Jayjay Jain MD [Primary Care Provider] -
== END 2018-05-20 15:13 | disposition home or self-care (01) ==
PROVIDERS: Emergency Provider Emergency Medicine; PCP Family Medicine
DX: R51 Headache (principal)
CPT/HCPCS: 36591; 70496; 80048; 85025; 96374; 99283; 99284; J2270

== ENCOUNTER 2018-06-14 17:53 | Emergency (ER) | payer OTHER, MEDICAID, SELFPAY ==
--- NOTE | 2018-06-14 18:06 | ED.SEIZURE ---
HPI - Seizure General Chief Complaint: Seizure Stated Complaint: seizure, h/o same Time Seen by Provider: 06/14/18 17:54 Source: patient, EMS and old records reviewed Mode of arrival: EMS Limitations: no limitations History of Present Illness HPI Narrative: Patient is a 58-year-old male presenting with seizure. He has a history of seizures as well as CVA and ruptured cerebral aneurysm with left-sided deficits. He said he was sleeping when he had a seizure in his bed today. His granddaughter found him and called 911. He now is complaining only of headache. He says he has not missed his Keppra his son sets out his medications for him. He was here twice in the beginning of the month with headache where he had [address] venogram. He denies any urinary incontinence or tongue injury. His he is not sure why he had a seizure this time. Previously his neurologist was consulted who recommended the venogram and follow-up. Unclear if he had follow-up. MD complaint: seizure Onset (ago): hour(s) Witnessed: yes - by bystander Trauma: No Seizure History: known seizure disorder Place: home Possible Precipitating Event: none Associated symptoms: denies other symptoms Related Data Home Medications Medication Instructions Recorded Confirmed topiramate 50 mg PO QAM #0 06/23/17 05/20/18 venlafaxine 150 mg PO QDAY #0 06/23/17 05/20/18 aspirin 81 mg PO QDAY #0 08/28/17 05/20/18 benztropine 1 mg PO BID #0 10/06/17 05/20/18 divalproex 500 mg PO BID #0 10/06/17 05/20/18 levetiracetam [Keppra] 1,500 mg PO BID #0 10/06/17 05/20/18 docusate sodium 100 mg PO BID PRN 05/20/18 05/20/18 quetiapine 50 mg PO BID 05/20/18 05/20/18 topiramate 100 mg PO QPM 05/20/18 05/20/18 Previous Rx's Medication Instructions Recorded tramadol [Ultram] 50 mg PO Q6H PRN #10 tab 05/20/18 Allergies Allergy/AdvReac Type Severity Reaction Status Date / Time cephalexin [From KEFLEX] Allergy Unknown Verified 05/19/18 18:03 erythromycin base Allergy Unknown Verified 05/19/18 18:03 [ERYTHROMYCIN BASE] ketorolac [From TORADOL] Allergy Unknown Verified 05/19/18 18:03 Review of Systems Review of Systems Constitutional Denies chills, Denies fever(s), Reports headache(s), Denies lethargy and Denies weakness Eyes Denies change in vision, Denies eye discharge, Denies irritation and Denies loss of vision ENT Ears, Nose, Mouth, and Throat: Reports headache(s) Cardiovascular Denies chest pain, Denies irregular heart rhythm, Denies lightheadedness, Denies palpitations, Denies dyspnea, Denies dyspnea on exertion and Denies orthopnea Respiratory Denies cough, Denies dyspnea, Denies dyspnea on exertion and Denies wheezing Gastrointestinal Gastrointestinal: Denies abdominal pain, Denies change in bowel habits, Denies diarrhea, Denies nausea and Denies vomiting Musculoskeletal Denies back pain, Denies muscle weakness, Denies numbness and Denies tingling Integumentary/Breasts Denies pruritus, Denies erythema, Denies rash and Denies wounds Neurologic Reports as per HPI, Reports headache(s), Denies loss of vision, Denies numbness, Denies tingling and Denies weakness Endocrine Denies palpitations Allergic/Immunologic Denies wheezing [facility] Medical History Cerebral aneurysm (Acute) Hemorrhagic stroke (Acute) Seizure (Acute) Surgical History H/O cerebral aneurysm repair (Acute) History of permanent cardiac pacemaker placement (Acute) Social History Smoking Status: Current every day smoker Exam Initial Vital Signs Initial Vital Signs: Vital Signs Pulse Rate 79 06/14/18 18:19 Respiratory Rate 16 06/14/18 18:19 Blood Pressure 109/69 06/14/18 18:19 Pulse Oximetry 99 06/14/18 18:19 GENERAL: Awake and alert chronically ill male HEENT: Head atraumatic,EOMI, pupils reactive, face symmetric CARDIOVASCULAR: Regular rate and rhythm without murmurs, rubs or gallops. RESPIRATORY: Breath sounds equal bilaterally, no wheezes rales or rhonchi. ABDOMEN: Soft, nontender. Normoactive bowel sounds all 4 quadrants. No guarding or rebound. : No CVA tenderness EXTREMITIES: Normal range of motion, no clubbing or edema. Neurovascularly intact NEUROLOGICAL: Alert and oriented x4.Normal gait and speech. Cranial nerves II through XII grossly intact. Slightly weaker all left side but moving all extremities at baseline per him SKIN: Warm, dry, no laceration, no petechiae, no rashes or lesions. Course Orders Ordered: ED Orders 06/14/18 18:56 Basic Metabolic Panel Stat Complete Blood Count AUTO DIFF Stat Magnesium Stat Discontinued Medications Acetaminophen (Tylenol) 975 mg PO NOW ONE Stop: 06/14/18 18:14 Last Admin: 06/14/18 18:35 Dose: 975 mg Sodium Chloride (Normal Saline 0.9%) 1,000 mls @ 1,000 mls/hr IV BOLUS PRN PRN Reason: Fluid replacement Last Infusion: 06/14/18 19:25 Dose: 0 mls/hr Admin: 06/14/18 18:35 Dose: 1,000 mls/hr Levetiracetam 1,500 mg/ Sodium (Chloride) 115 mls @ 460 mls/hr IV NOW ONE Stop: 06/14/18 18:56 Last Infusion: 06/14/18 19:58 Dose: 0 mls/hr Admin: 06/14/18 19:24 Dose: 460 mls/hr Morphine Sulfate (Morphine) 2 mg IV NOW ONE Stop: 06/14/18 19:42 Last Admin: 06/14/18 20:11 Dose: 2 mg Vital Signs - 8 hr 06/14/18 19:35 06/14/18 20:12 06/14/18 20:27 Pulse Rate 58 L 89 67 Respiratory Rate 15 16 16 Blood Pressure 126/95 H Blood Pressure [Left Arm] 114/80 114/75 Pulse Oximetry 100 100 98 MDM - Seizure Medical Records Attestation: I reviewed the patient's medical records. Lab Data Attestation: I reviewed the patient's lab results. Result diagrams: 06/14/18 18:56 06/14/18 18:56 Lab Results 06/14/18 06/14/18 Range/Units 18:56 18:56 WBC 5.6 (4.5-11.0) X10^3/uL RBC 4.07 L (4.5-5.9) X10^6/uL Hgb 13.7 (13.5-17.5) g/dL Hct 39.9 L (41-53) % MCV 98.1 (80-100) fL MCH 33.8 (26-34) PG MCHC 34.4 (30-36) % RDW 12.8 (11.6-14.8) % Plt Count 175 (150-400) X10^3/uL Neut % (Auto) 59.2 (50-75) % Lymph % (Auto) 30.7 (25-40) % [place] % (Auto) 9.2 (3-14) % Eos % (Auto) 0.3 L (2-4) % Baso % (Auto) 0.6 (0-2) % Neut # (Auto) 3300 (8959-2108) /uL Sodium 142 (137-145) mmol/L Potassium 4.3 (3.4-5.1) mmol/L Chloride 107 (98-107) mmol/L Carbon Dioxide 24 (22-32) mmol/L BUN 16 (9-20) mg/dL Creatinine 1.10 (0.66-1.25) mg/dL Estimated GFR > 60.0 (>60) mL/min BUN/Creatinine Ratio 14.5 (6-22) Glucose 90 (70-100) mg/dL Calcium 8.6 (8.4-10.2) mg/dL Magnesium 1.9 (1.6-2.3) mg/dL Point of Care Testing Glucose POC [address] scan - head: Radiologist's impression: PROCEDURE: CT HEAD/BRAIN WO CON INDICATIONS: seizure headache hx of SAH and cva TECHNIQUE: Noncontrast 4.5 mm thick angled axial sections acquired from the foramen magnum to the vertex, with coronal and sagittal reformats. For radiation dose reduction, the following was used: automated exposure control, adjustment of mA and/or kV according to patient size. COMPARISON: [facility], CT, CT HEAD/BRAIN WO CON, 05/19/2018, 18:39. FINDINGS: Image quality: Excellent. CSF spaces: Basal cisterns are patent. No extra-axial fluid collections. The ventricles are unchanged in size and shape. There is mild cerebral volume loss, with resultant ventricular and sulcal prominence. Brain: No intracranial hemorrhage, mass, or mass effect. Bilateral areas of encephalomalacia are redemonstrated consistent with prior infarcts in the right frontal and right temporal lobes as well as bilateral lacunar infarcts in the cerebellar hemispheres. Sequela of prior ventriculostomy tracks redemonstrated along the right frontal lobes. Postsurgical changes are also redemonstrated in the right temporal lobe consistent with prior aneurysm clipping. Skull and face: Calvarium and visualized facial bones demonstrate no acute fractures. There are postsurgical changes status post right frontal and temporal craniotomy. Sinuses: Visualized sinuses and mastoids are clear. IMPRESSION: 1. No definite acute intracranial abnormality. 2. Post surgical changes redemonstrated status post right aneurysm clipping. 3. Sequela of prior infarcts redemonstrated in the right frontal and temporal lobes as well as bilateral cerebellar hemispheres. Dictated by: Catracho Darnell M.D. on 06/14/2018 at 18:45 MDM Narrative Medical decision making narrative: patient does have occasional breakthrough seizures. According the son he has been good about taking his medication he has not had fever or illness like symptoms. He has been sleeping regularly. He does have an appointment with Dr. mcguire they think they are not sure when it is. I recommend call them in the morning. he did receive his IV dose of Keppra in the ED. Discharge Plan Departure Patient Disposition: Home Clinical Impression: Generalized seizure Discharge Date/Time: 06/14/18 20:28 Interventions: ED Discharge Assessment Last Done: 06/14/18 20:27 Instructions: Seizure Disorder -- Adult Activity Restrictions/Additional Instructions: *You have been diagnosed with breakthrough seizure *What to do: Important to follow up with your neurologist, if persistent or recurrent breakthrough seizures you may require dosage change *Continue to take medications as directed -do not take tonight's dose of Keppra you're given a dose through the IV. Return to regular schedule tomorrow morning *Follow up with your primary care provider in 2-3 days, call Dr. mcguire in the morning to schedule follow-up appointment if you have not already done so *Return to ER if you should have recurrent seizure, weakness, fever or any new, worsening or concerning symptoms Prescriptions: No Action topiramate 50 MG tablet 50 mg PO QAM Qty: 0 RF: 0 venlafaxine 150 MG capsule,extended release 24hr 150 mg PO QDAY Qty: 0 RF: 0 aspirin 81 MG tablet,chewable 81 mg PO QDAY Qty: 0 RF: 0 divalproex 500 MG tablet,delayed release (DR/EC) 500 mg PO BID Qty: 0 RF: 0 benztropine 1 MG tablet 1 mg PO BID Qty: 0 RF: 0 levetiracetam [Keppra] 1,000 MG tablet 1,500 mg PO BID Qty: 0 RF: 0 docusate sodium 100 mg tablet 100 mg PO BID PRN (Reason: stool softener) RF: 0 topiramate 50 mg tablet 100 mg PO QPM RF: 0 quetiapine 50 mg tablet 50 mg PO BID RF: 0 tramadol [Ultram] 50 mg tablet 50 mg PO Q6H PRN (Reason: pain) Qty: 10 RF: 0 Referrals: Jayjay Jain MD [Primary Care Provider] - Ari Mcguire MD [Non-Staff] -
--- NOTE | 2018-06-14 18:13 | DI.CT.S_ITS ---
PROCEDURE: CT HEAD/BRAIN WO CON INDICATIONS: seizure headache hx of SAH and cva TECHNIQUE: Noncontrast 4.5 mm thick angled axial sections acquired from the foramen magnum to the vertex, with coronal and sagittal reformats. For radiation dose reduction, the following was used: automated exposure control, adjustment of mA and/or kV according to patient size. COMPARISON: [facility], CT, CT HEAD/BRAIN WO CON, 05/19/2018, 18:39. FINDINGS: Image quality: Excellent. CSF spaces: Basal cisterns are patent. No extra-axial fluid collections. The ventricles are unchanged in size and shape. There is mild cerebral volume loss, with resultant ventricular and sulcal prominence. Brain: No intracranial hemorrhage, mass, or mass effect. Bilateral areas of encephalomalacia are redemonstrated consistent with prior infarcts in the right frontal and right temporal lobes as well as bilateral lacunar infarcts in the cerebellar hemispheres. Sequela of prior ventriculostomy tracks redemonstrated along the right frontal lobes. Postsurgical changes are also redemonstrated in the right temporal lobe consistent with prior aneurysm clipping. Skull and face: Calvarium and visualized facial bones demonstrate no acute fractures. There are postsurgical changes status post right frontal and temporal craniotomy. Sinuses: Visualized sinuses and mastoids are clear. IMPRESSION: 1. No definite acute intracranial abnormality. 2. Post surgical changes redemonstrated status post right aneurysm clipping. 3. Sequela of prior infarcts redemonstrated in the right frontal and temporal lobes as well as bilateral cerebellar hemispheres. Dictated by: Catracho Darnell M.D. on 06/14/2018 at 18:45 Approved by: Catracho Darnell M.D. on 06/14/2018 at 18:49
[2018-06-14 18:19] VITALS: BP 109/69; PULSE 79; RESP 16; O2SAT 99
[2018-06-14] MEDS: SODIUM CHLORIDE 0.9% 1,000 ML 1000 ML IV (18:35)
[2018-06-14] MEDS: ACETAMINOPHEN 325 MG TABLET 975 MG PO (18:35)
[2018-06-14 18:41] VITALS: BP 103/78; PULSE 79; RESP 16; TEMP 36.9; O2SAT 99; BMI 21.5
[2018-06-14 18:52] VITALS: BP 103/78; PULSE 68; O2SAT 100
[2018-06-14 19:06] LABS: Add Manual Diff / Slide Review NO; Basophils Percent Auto 0.6 % (0-2); Eosinophils Percent Auto 0.3 % (2-4); Hematocrit 39.9 % (41-53); Hemoglobin 13.7 g/dL (13.5-17.5); Lymphocytes Percent Auto 30.7 % (25-40); Mean Corpuscular HGB Conc 34.4 % (30-36); Mean Corpuscular Hemoglobin 33.8 PG (26-34); Mean Corpuscular Volume 98.1 fL (80-100); Monocytes Percent Auto 9.2 % (3-14); Neutrophils Absolute Auto 3300 /uL (3000-5900); Neutrophils Percent Auto 59.2 % (50-75); Platelet Count 175 X10^3/uL (150-400); Red Blood Cell Count 4.07 X10^6/uL (4.5-5.9); Red Cell Distribution Width 12.8 % (11.6-14.8); White Blood Cell Count 5.6 X10^3/uL (4.5-11.0)
[2018-06-14 19:24] LABS: BUN Creatinine Ratio 14.5 (6-22); Blood Urea Nitrogen 16 mg/dL (9-20); Calcium 8.6 mg/dL (8.4-10.2); Carbon Dioxide 24 mmol/L (22-32); Chloride 107 mmol/L (98-107); Estimated Glomerular Filt Rate > 60.0 mL/min (>60); Glucose 90 mg/dL (70-100); HEMOLYSIS < 15 (0-50); Magnesium 1.9 mg/dL (1.6-2.3); Potassium 4.3 mmol/L (3.4-5.1); Sodium 142 mmol/L (137-145)
[2018-06-14] MEDS: levETIRAcetam 1,500 MG in SODIUM CHLORIDE 0.9% 100 ML 460 ML IV (19:24)
[2018-06-14 19:35] VITALS: BP 114/80; PULSE 58; RESP 15; O2SAT 100
[2018-06-14] MEDS: MORPHINE 2 MG/ML INJ IV (20:11)
[2018-06-14 20:12] VITALS: BP 114/75; PULSE 89; RESP 16; O2SAT 100
--- NOTE | 2018-06-14 20:22 | PC.NURSE ---
Seizure precautions, order manager, and pulse oximeter done by Stacey Frost RN before I took over patient care.
[2018-06-14 20:27] VITALS: BP 126/95; PULSE 67; RESP 16; O2SAT 98
== END 2018-06-14 20:28 | disposition home or self-care (01) ==
PROVIDERS: Emergency Provider Emergency Medicine; PCP Family Medicine
DX: R56.9 Unspecified convulsions (principal)
CPT/HCPCS: 70450; 80048; 82962; 83735; 85025; 96361; 96365; 96375; 99284; 99285; 99291; J1953; J2270